=== PATIENT | female | born 1950 ===

== ENCOUNTER 2017-07-19 16:06 | Emergency (ER) | payer MEDICARE, BC ==
[2017-07-19 19:11] VITALS: BP 126/67
[2017-07-19] MEDS ORDERED: Rabies Immune Globulin 10 ML* 150 UNIT/ML VIAL IM ONE (19:13)
[2017-07-19] MEDS ORDERED: Rabies VIRUS VACCINE (Imovax)* 2.5 UNIT/ML 1 ML IM ONE (19:14)
--- NOTE | 2017-07-19 21:03 | UC ---
Siria Rangel Gabriel, scribed for Lupillo Kapadia MD on 07/19/17 at 1901 . Bite Injury/Animal HPI - HPI Summary HPI Summary: This patient is a 66 year old F presenting [place] [facility]/p dog bite that occurred in [place] on 07-14-17. There was sleeping dog that the patient attempted to pet and got bitten on the right hand, cleansed with iodine/rubbing alcohol. She was seen at the hospital there and given tetanus shot and 2 rabies vaccines. The patient rates the pain 0/10 in severity. - History of Current Complaint Stated Complaint: DOG BITE Time Seen by Provider: 07/19/17 18:55 Hx Obtained From: Patient Severity Currently: None Severity Initially: Moderate Pain Intensity: 0 Onset/Duration: Lasting Days - 5, Still Present Type of Bite: Animal Has Animal Been Immunized?: Unknown Character: Puncture Associated Signs And Symptoms: Positive: Negative - pain Animal Available for Observation: No - Allergies/Home Medications Allergies/Adverse Reactions: Allergies Allergy/AdvReac Type Severity Reaction Status Date / Time Penicillins Allergy Hives Verified 07/19/17 19:04 Home Medications: Home Medications Calcium Carbonate [Calcium/C/D] 1 chw PO DAILY 07/19/17 [History Confirmed 07/19] Hydrochlorothiazide TAB* [Hydrodiuril TAB*] 25 mg PO DAILY 07/19/17 [History Confirmed 07/19/17] Multivitamin [Multivitamins] 1 cap PO DAILY 07/19/17 [History Confirmed 07/19/17 ] amLODIPine TAB* [Norvasc 5 mg TAB*] 5 mg PO DAILY 07/19/17 [History Confirmed ] PMH/Surg Hx/FS Hx/Imm Hx Cardiovascular History: Hypertension GI/ History: Other Other GI/ History: kidney stones - Surgical History Surgical History: None - Family History Known Family History: Positive: Hypertension Negative: Respiratory Disease, Seizure Disorder - Social History Alcohol Use: None Substance Use Type: None Smoking Status (MU): Never Smoked Tobacco Review of Systems Skin: Other - dog bite Musculoskeletal: Negative - pain All Other Systems Reviewed And Are Negative: Yes Physical Exam - Summary Physical Exam Summary: General: well-appearing, no pain distress Skin: Healing 5mm wound over the right third MP joint. healed wound in the webbing between the 4th and 5th fingers Head: normal Eyes: EOMI, FRANK ENT: normal Neck: supple, nontender Respiratory: CTA, breath sounds present Cardiovascular: RRR Abdomen: soft, nontender Bowel: present Musculoskeletal: normal, strength/ROM intact Neurological: normal, sensory/motor intact, A&O x3 Psychological: affect/mood appropriate Triage Information Reviewed: Yes Vital Signs: Initial Vital Signs Temp 97.5 F 07/19/17 19:06 Pulse 75 07/19/17 19:06 Resp 18 07/19/17 19:06 BP 126/67 07/19/17 19:06 Pulse Ox 98 07/19/17 19:06 Vital Signs Reviewed: Yes Procedures - Procedure Summary Procedure Summary: RIG was injected 1.5 ml went in over the third MP joint 1.5ml went in the webbing between 3rd and 4th fingers. Sterile technique was used. Bite Injury Course/Dx - Course Course Of Treatment: 3ML RIG INJECTED INTO RT HAND WOUND. F/U [facility]. - Differential Dx/Diagnosis Provider Diagnoses: RIGHT HAND DOG BITE. RABIES RIG AND VACCINATION Discharge - Sign-Out/Discharge Documenting (check all that apply): Discharge/Admit/Transfer - Discharge Plan Condition: Stable Disposition: HOME Patient Education Materials: Rabies Vaccine (By injection), Rabies Immune Globulin (By injection), Animal Bite (ED) Referrals: Farrukh Haines MD [Primary Care Provider] - Additional Instructions: FOLLOW UP WITH [facility]. GET RECHECKED FOR ANY WORSENING OF YOUR CONDITION OR QUESTIONS OR CONCERNS. - Billing Disposition and Condition Condition: STABLE Disposition: HOME The documentation as recorded by the Siria marcano Gabriel accurately reflects the service I personally performed and the decisions made by me, Lupillo Kapadia MD.
== END 2017-07-19 20:46 | disposition home or self-care (01) ==
LOC: UCEAST 16:06
DX: S61.451A Open bite of right hand, initial encounter (principal); W54.0XXA Bitten by dog, initial encounter; Y92.9 Unspecified place or not applicable; Z88.0 Allergy status to penicillin; Z23 Encounter for immunization
CPT/HCPCS: 90375; 99201; G0463

== ENCOUNTER 2017-10-08 11:29 | Emergency (ER) | payer MEDICARE, BC ==
--- NOTE | 2017-10-08 12:02 | ED ---
Syncope/Near Syncope - HPI Summary HPI Summary: This patient is a 67 year old F presenting to [facility] with a chief complaint of syncope since 0200 10/06/17. [facility] [place] [facility], endorsed dizziness due to dehydration, experienced syncope and fell onto face, causing swelling and ecchymosis. - History Of Current Complaint Chief Complaint: EDFacialInjury Time Seen by Provider: 10/08/17 11:47 Hx Obtained From: Patient Onset/Duration: Sudden Onset Context: Witnessed, Loss Of Consciousness Activity At Onset: At Rest Associated Head Trauma: Yes Aggravating Factor(s): Nothing Alleviating Factor(s): Nothing Associated Signs And Symptoms: Dizzy, Head Trauma (Recent), Pain - Allergies/Home Medications Allergies/Adverse Reactions: Allergies Allergy/AdvReac Type Severity Reaction Status Date / Time Penicillins Allergy Hives Verified 10/08/17 11:39 PMH/Surg Hx/FS Hx/Imm Hx Endocrine/Hematology History: Denies: Hx Diabetes Cardiovascular History: Reports: Hx Hypertension Denies: Hx Congestive Heart Failure History: Denies: Hx Renal Disease Sensory History: Reports: Hx Contacts or Glasses Opthamlomology History: Reports: Hx Contacts or Glasses EENT History: Denies: Hx Deafness Infectious Disease History: No Infectious Disease History: Denies: Traveled Outside the [place] in Last 30 Days - Family History Known Family History: Positive: Hypertension Negative: Respiratory Disease, Seizure Disorder - Social History Occupation: Retired Alcohol Use: None Substance Use Type: Reports: None Smoking Status (MU): Never Smoked Tobacco Review of Systems Negative: Fever Positive: Myalgia - face, Edema - face Positive: Bruising Neurological: Other - dizziness Positive: Syncope All Other Systems Reviewed And Are Negative: Yes Physical Exam - Summary Physical Exam Summary: Appearance: Well appearing, no pain distress Skin: warm, dry, reflects adequate perfusion Head/face: periorbital ecchymosis, forehead, periorbital swelling Eyes: EOMI, FRANK ENT: normal Neck: supple, non-tender, no neck pain, Respiratory: CTA, breath sounds present Cardiovascular: RRR, pulses symmetrical, no murmur Abdomen: non-tender, soft Bowel Sounds: present Musculoskeletal: normal, strength/ROM intact, no injuries to extremities Neuro: normal, sensory motor intact, A&Ox3, no confusion Triage Information Reviewed: Yes Vital Signs On Initial Exam: Initial Vitals Temp Pulse Resp BP Pulse Ox 96.8 F 65 17 172/73 99 10/08/17 11:33 10/08/17 11:33 10/08/17 11:33 10/08/17 11:33 10/08/17 11:33 Vital Signs Reviewed: Yes Diagnostics - Vital Signs Vital Signs Temp Pulse Resp BP Pulse Ox 10/08/17 11:33 96.8 F 65 17 172/73 99 - Laboratory Lab Statement: Any lab studies that have been ordered have been reviewed, and results considered in the medical decision making process. Course/Dx Course Of Treatment: The patient with an orthostatic or vagal syncope while in [place]. She had medical evaluation there to include head CT and echocardiogram. She was found to have some minor aortic valve insufficiency as evidenced by the report. She has no headache but complains of facial bruising. There is no bony step-offs. Her ecchymosis started as a forehead hematoma and now has progressed to the periorbital areas. Home care was discussed and the patient is discharged in good condition. - Diagnoses Provider Diagnoses: Periorbital ecchymosis, History of head injury Discharge - Sign-Out/Discharge Documenting (check all that apply): Patient Departure - discharge - Discharge Plan Condition: Stable Disposition: HOME Patient Education Materials: [place] (ED) Referrals: Farrukh Haines MD [Primary Care Provider] - Additional Instructions: Warm compresses and massage to the area. Have your doctor schedule you for echocardiogram and follow-up possibly with cardiology for passing out and dizziness. They will want to follow-up the aortic insufficiency as well. Return if worse, new symptoms or other concerns. - Billing Disposition and Condition Condition: STABLE Disposition: Home
[2017-10-08 12:03] VITALS: BP 160/74
== END 2017-10-08 12:03 | disposition home or self-care (01) ==
LOC: ED 11:29
DX: S09.90XA Unspecified injury of head, initial encounter (principal); S05.10XA Contusion of eyeball and orbital tissues, unspecified eye, initial encounter; W19.XXXA Unspecified fall, initial encounter; Y92.9 Unspecified place or not applicable; I35.1 Nonrheumatic aortic (valve) insufficiency; Z88.0 Allergy status to penicillin
CPT/HCPCS: 99282